=== PATIENT | female | born 1940 | race Caucasian/White ===

== ENCOUNTER 2020-11-09 19:21 | Observation (INO) | payer MEDICARE, OTHER ==
[~2020-11-09] VITALS: Ht 157.5 cm; Wt 90.7 kg
[~2020-11-09 19:21] MED LIST: ACET325 PO; AMLO5 PO; ASPI81CH PO; ATOR20 PO; CYAN500 PO; EUTHYROX50 MCG PO; FOLI1 PO; LISI20 PO; METF500C PO; METO100ER PO; POTCHL20ER PO; SENNA LAXATIVE8.6 MG PO; SERT50 PO
[2020-11-09 20:34] LABS: BASOPHILS ABSOLUTE AUTO 0.03 K/mm3 (0.00-0.23); BASOPHILS PERCENT AUTO 0 % (0-2); EOSINOPHILS ABSOLUTE AUTO 0.04 K/mm3 (0.00-0.68); EOSINOPHILS PERCENT AUTO 0 % (0-6); Hematocrit 34.7 % (33.0-51.0); Hemoglobin 11.2 g/dL (11.5-16.0); IMMATURE GRAN ABSOLUTE AUTO 0.05 K/mm3 (0.00-0.10); IMMATURE GRAN PERCENT AUTO 0 % (0-1); LYMPHOCYTES ABSOLUTE AUTO 0.87 K/mm3 (0.84-5.20); LYMPHOCYTES PERCENT AUTO 6 % (21-46); MONOCYTES ABSOLUTE AUTO 1.21 K/mm3 (0.16-1.47); MONOCYTES PERCENT AUTO 9 % (4-13); Mean Corpuscular HGB 28.4 pg (26.0-34.0); Mean Corpuscular HGB Conc 32.3 g/dL (31.5-36.5); Mean Corpuscular Volume 88 fL (80-100); Mean Platelet Volume 10.5 fL (9.1-12.4); NEUTROPHILS ABSOLUTE AUTO 12.01 K/mm3 (1.96-9.15); NEUTROPHILS PERCENT AUTO 85 % (41-73); Platelet Count 335 K/mm3 (150-400); RDW Coefficient Variation 12.7 % (11.7-14.2); RDW Standard Deviation 41.7 fL (35.1-46.3); Red Blood Cell Count 3.95 M/mm3 (3.80-5.20); White Blood Cell Count 14.21 K/mm3 (4.00-11.30)
[2020-11-09 20:57] LABS: Alanine Aminotransfer (ALT/SGP 28 U/L (12-78); Albumin, Blood 2.8 g/dL (3.4-5.0); Albumin/Globulin Ratio 0.6 (0.8-1.8); Alk Phos 111 U/L (50-136); Anion Gap 11 mmol/L (6-16); Aspartate Aminotrans (AST/SGOT 28 U/L (12-37); Bilirubin, Total 0.8 mg/dL (0.1-1.0); Blood Urea Nitrogen 29 mg/dL (8-24); Bun/Creatinine Ratio 34.4 (12.0-20.0); CO2, Blood 20 mmol/L (21-32); Chloride, Blood 99 mmol/L (98-108); Creatinine, Blood 0.84 mg/dL (0.40-1.00); Free Thyroxine 1.45 ng/dL (0.70-1.60); Globulin, Blood 4.4 g/dL (2.2-4.0); Glomerular Filtration Rate >60 (60-); Glucose, Blood 265 mg/dL (70-99); Magnesium, Blood 2.3 mg/dL (1.6-2.4); Potassium, Blood 4.1 mmol/L (3.5-5.5); Sodium, Blood 130 mmol/L (136-145); Total Protein, Blood 7.2 g/dL (6.4-8.2)
[2020-11-09 21:33] LABS: Source, Urine Clean Catch
[2020-11-09 21:45] LABS: Appearance, Urine Hazy (Clear); Bilirubin, Urine Neg (Neg); Blood, Urine Neg (Neg); Color, Urine Yellow (P-Yellow); Glucose Qualitative, Urine 4+ (Neg); Ketones, Urine Neg (Neg); Leukocyte Esterase, Urine 1+ (Neg); Nitrite, Urine Neg (Neg); Protein, Urine 2+ (Neg); Urobilinogen, Urine 1+ (Normal)
[2020-11-09 22:32] LABS: Bacteria Many /hpf; Red Blood Cells, Urine 0-2 /hpf (0-2); Squamous Epithelial Cells Few /hpf (Few)
--- NOTE | 2020-11-10 07:47 | NUR ---
11/10/20 0035 PT ARRIVED FROM ER VIA [facility]. ORIENTED HER TO ROOM AND ORDERS. COMPUTER SYSTEM ON DOWN-TIME AND ADMISSION PAPERWORK DONE ON PAPER FORMS. SEE CHART.
--- NOTE | 2020-11-10 07:49 | NUR ---
11/10/20 0600 PT SLEPT WELL AND IV FLUIDS RUNNING AT 75ML/HOUR. DENIES ANY PAIN. GENERAL WEAKNESS NOTED AND REPOSITIONED Q 2 HOURS WITH PILLOWS. TILLMAN CATH PATENT AND DRAINING WELL.
[2020-11-10] MEDS ORDERED: HYDCHL12.5 PO (16:54)
--- NOTE | 2020-11-10 19:16 | NUR ---
She remains pleasantly confused. SHE WAS UP IN THE CHAIR FOR 2 MEALS. SHE WORKED WITH PT TODAY. HER TILLMAN IS PATENT. SHE HAD A VERY SMALL BM FORMED BROWN TODAY. SHE HAD PAIN ALL OVER THIS MORNING AND TYLENOL WAS EFFECTIVE. ALL CBG'S WERE IN THE 200'S TODAY. SHE HAS EATEN WELL. IVFS WERE COMPLETED. LAST SBP HIGH LIKE IT WAS LAST NIGHT.
--- NOTE | 2020-11-11 04:22 | NUR ---
SHIFT SUMMARY- PT. ALERT W/CONFUSION. HAD NO COMPLAINTS T/O THE NIGHT. SLEPT MOST OF THE NIGHT, NO APPARENT DISTRESS NOTED. C/O LEG PAIN 1X, MEDICATED PER EMAR WITH GOOD EFFECT. TILLMAN CATHETER PATENT AND DRAINING. VSS. CALL LIGHT WITHIN REACH, SIDE RAILS UPX2, AND BED ALARM ON FOR SAFETY. WILL CONT TO MONITOR.
[2020-11-11 08:20] LABS: BASOPHILS ABSOLUTE AUTO 0.06 K/mm3 (0.00-0.23); BASOPHILS PERCENT AUTO 1 % (0-2); EOSINOPHILS ABSOLUTE AUTO 0.13 K/mm3 (0.00-0.68); EOSINOPHILS PERCENT AUTO 1 % (0-6); Hematocrit 34.3 % (33.0-51.0); Hemoglobin 11.2 g/dL (11.5-16.0); IMMATURE GRAN ABSOLUTE AUTO 0.06 K/mm3 (0.00-0.10); IMMATURE GRAN PERCENT AUTO 1 % (0-1); LYMPHOCYTES ABSOLUTE AUTO 1.11 K/mm3 (0.84-5.20); LYMPHOCYTES PERCENT AUTO 10 % (21-46); MONOCYTES ABSOLUTE AUTO 0.89 K/mm3 (0.16-1.47); MONOCYTES PERCENT AUTO 8 % (4-13); Mean Corpuscular HGB 28.1 pg (26.0-34.0); Mean Corpuscular HGB Conc 32.7 g/dL (31.5-36.5); Mean Corpuscular Volume 86 fL (80-100); Mean Platelet Volume 10.5 fL (9.1-12.4); NEUTROPHILS PERCENT AUTO 81 % (41-73); Platelet Count 387 K/mm3 (150-400); RDW Coefficient Variation 12.9 % (11.7-14.2); RDW Standard Deviation 40.5 fL (35.1-46.3); Red Blood Cell Count 3.98 M/mm3 (3.80-5.20); White Blood Cell Count 11.55 K/mm3 (4.00-11.30)
[2020-11-11 08:43] LABS: Anion Gap 7 mmol/L (6-16); Blood Urea Nitrogen 18 mg/dL (8-24); Bun/Creatinine Ratio 26.7 (12.0-20.0); CO2, Blood 25 mmol/L (21-32); Chloride, Blood 106 mmol/L (98-108); Creatinine, Blood 0.67 mg/dL (0.40-1.00); Glomerular Filtration Rate >60 (60-); Glucose, Blood 154 mg/dL (70-99); Potassium, Blood 3.4 mmol/L (3.5-5.5); Sodium, Blood 138 mmol/L (136-145)
--- NOTE | 2020-11-11 17:59 | NUR ---
SHE HAS HAD AN UNEVENTFUL DAY. SHE DID TALK TO A COUPLE OF FAMILY MEMBERS ON THE PHONE THOUGH. SHE IS PLEASANTLY CONFUSED. SHE DOES NOT UNDERSTAND HOW TO DIAL THE PHONE OR USE THE NURSE CALL LIGHT AND TV CONTROL. SHE IS VERY WEAK BUT CAN GET TO A STAND WITH 2 ASSIST. HE BALANCE IS ALSO POOR SO THE GAIT BELT IS NECESSARY. SHE RESPONDS WELL TO QUE[place]. TILLMAN PATENT. BP 170'S NEAR THE END OF THE SHIFT. TYLENOL GIVEN X1 FOR GENERAL DISCOMFORT ALL OVER.
--- NOTE | 2020-11-12 05:06 | NUR ---
SHIFT SUMMARY- NO ACUTE EVENTS OVERNIGHT. PT. AWAKE MOST OF THE SHIFT, PLEASANTLY CONFUSED. NO C/O PAIN OR DISCOMFORT. BP IMPROVED LAST NIGHT, NO ACUTE DISTRESS NOTED. CALL LIGHT WITHIN REACH AND SIDE RAILS UPX2. WILL CONT TO MONITOR.
--- NOTE | 2020-11-12 15:45 | NUR ---
CALLED hospitalist for parameters for dealing with high bp, left two messages but in one hour no response, checked with [facility] nurse she recommended giving hydrazaline as prescribed prn, did so will continue to monitor and treat as appropriate
--- NOTE | 2020-11-12 19:15 | NUR ---
a+o to self, states she is at the dr's, call light in reach, bed in low position, htn treated with prn medication successfully, sitting up in bed watching tv, bed in low position no acute changes noted during shift, bsr shared with noc nurse and pt
--- NOTE | 2020-11-13 06:39 | NUR ---
HOURLY SHIFT MANAGER SUMMARY PT A/O X1 TO SELF. SLEPT WELL TONIGHT. MEDICATED FOR HTN PER EMAR. PT IS PLEASANTLY CONFUSED. NO ACUTE CHANGES. PO FLUIDS ENCOURAGED OVERNIGHT. TILLMAN IN PLACE, PATENT AND DRAINING. CALL LIGHT WITHIN REACH, BED ALARM IN PLACE.
--- NOTE | 2020-11-13 20:17 | NUR ---
a+o to self, call light in reach, note given to litigation legal secretary r/change of phone number of next of kin, Son had called at 1630 and expressed concern r/mentation of pt and her suitability of returing home, fully supported snf, stated he had pw giving him poa, was not able to get note written for litigation legal secretary until after change of shift, confirmed pt desire to have son as poa, bsr shared with noc nurse and pt
--- NOTE | 2020-11-14 07:21 | NUR ---
CRIME DATA SPECIALIST SUMMARY PT A/O X0. PLEASANTLY SURPRISED. CONVERSATIONS DOES NOT MAKE SENSE. SLEPT WELL TONIGHT. BLE EDEMA, ELEVATED BLE TO DECREASE SWELLING AND PAIN. PT COMPLAINED OF A HEADACHE THIS MORNING. MEDICATED WITH TYLENOL. NO ACUTE CHANGES. BED ALARM IN PLACE, CALL LIGHT WITHIN REACH. REPORT GIVEN TO AM NURSE.
--- NOTE | 2020-11-14 17:23 | NUR ---
PT AOX1 AND COOPERATIVE OF CARE. PT HAS BEEN RESTING IN BED TODAY. PT IS A TWO PERSON TRANSFER TO BEDSIDE COMMODE SHE IS NOT VERY STRONG YET. PT HAS DENIED ANY PAIN. PT'S TILLMAN IS PATENT AT THIS TIME. BED ALARM IS IN PLACE AND CALL LIGHT WITHIN REACH. WILL CONTINUE TO MONITOR.
--- NOTE | 2020-11-15 06:06 | NUR ---
SUMMARY NO ISSUES NOTED. PT HAS BEEN RESTING WELL T/O SHIFT. PT SLEPT SOME. PT HAD NO COMPLAINTS. PT CURRENTLY SLEEPING AND BREATHING EASY. PT REMAINS CONFUSED AND PLESANT. CALL LIGHT IN REACH AND BED ALARM ON.
[2020-11-15 16:29] LABS: Influenza A, PCR Negative (NEGATIVE); Influenza B, PCR Negative (NEGATIVE); Resp Syncytial Virus, PCR Negative (NEGATIVE); SARS-Cov-2 (COVID-19) PCR, MMC Negative (NEGATIVE)
[2020-11-15] MEDS ORDERED: NORVASC5 MG PO (16:29)
[2020-11-15] MEDS ORDERED: INSULANPEN SC (16:30)
[2020-11-15] MEDS ORDERED: HUMALOG KW100 UNIT/1 SC (16:31)
--- NOTE | 2020-11-15 18:44 | NUR ---
PT TRANSFERED TO [facility]. NO DISTRESS NOTED AOX1-2 WITH CONFUSION. PT A 2 PERSON TRANSFER TO CHAIR OR COMMODE. PT DOING WELL TALKING AND VISITING TODAY. CALLED REPORT PRIOR TO TRANSPORT. PT TRANSPORTED VIA [facility] AND [facility]. PACKET SENT WITH CORRECTIONAL PROGRAM OFFICER.
== END 2020-11-15 18:25 ==
LOC: ER 19:21 → MEDS 19:22
PROVIDERS: Emergency Medicine; Family Medicine; Internal Medicine; ADMIT Internal Medicine
DX: N39.0 Urinary tract infection, site not specified (principal); E86.0 Dehydration; I11.0 Hypertensive heart disease with heart failure; I50.32 Chronic diastolic (congestive) heart failure; E11.65 Type 2 diabetes mellitus with hyperglycemia; E03.9 Hypothyroidism, unspecified; I47.1 Supraventricular tachycardia; E78.5 Hyperlipidemia, unspecified; Z79.84 Long term (current) use of oral hypoglycemic drugs; Z79.82 Long term (current) use of aspirin; Z79.899 Other long term (current) drug therapy; Z20.828 Contact with and (suspected) exposure to other viral communicable diseases
CPT/HCPCS: 0241U; 36415; 51702; 71046; 73502; 74176; 80048; 80053; 81001; 82947; 83735; 84439; 84443; 85025; 87086; 93005; 93010; 96361-59; 96365-59; 97110; 97110-CQ; 97129; 97162; 97166; 97530; 97530-CQ; 97535; 99285-25; A9270; A9270-GY; J0360; J0696; J7030; J7050

== ENCOUNTER 2020-11-18 13:31 | Inpatient (IN) | payer MEDICARE, OTHER ==
[~2020-11-18] VITALS: Ht 162.6 cm; Wt 58.2 kg
[~2020-11-18 13:31] MED LIST changes: -ACET325 PO; -ASPI81CH PO; -ATOR20 PO; -EUTHYROX50 MCG PO; -LISI20 PO; -METF500C PO; -METO100ER PO; -POTCHL20ER PO; -SENNA LAXATIVE8.6 MG PO; -SERT50 PO
[2020-11-18 14:29] LABS: BASOPHILS ABSOLUTE AUTO 0.09 K/mm3 (0.00-0.23); BASOPHILS PERCENT AUTO 1 % (0-2); EOSINOPHILS ABSOLUTE AUTO 0.04 K/mm3 (0.00-0.68); EOSINOPHILS PERCENT AUTO 0 % (0-6); IMMATURE GRAN ABSOLUTE AUTO 0.38 K/mm3 (0.00-0.10); IMMATURE GRAN PERCENT AUTO 2 % (0-1); LYMPHOCYTES ABSOLUTE AUTO 1.66 K/mm3 (0.84-5.20); LYMPHOCYTES PERCENT AUTO 10 % (21-46); MONOCYTES ABSOLUTE AUTO 0.75 K/mm3 (0.16-1.47); MONOCYTES PERCENT AUTO 4 % (4-13); Mean Corpuscular HGB 28.1 pg (26.0-34.0); Mean Corpuscular HGB Conc 31.3 g/dL (31.5-36.5); Mean Corpuscular Volume 90 fL (80-100); Mean Platelet Volume 10.4 fL (9.1-12.4); NEUTROPHILS ABSOLUTE AUTO 14.22 K/mm3 (1.96-9.15); NEUTROPHILS PERCENT AUTO 83 % (41-73); Platelet Count 548 K/mm3 (150-400); RDW Coefficient Variation 13.1 % (11.7-14.2); RDW Standard Deviation 42.9 fL (35.1-46.3); Red Blood Cell Count 1.99 M/mm3 (3.80-5.20); White Blood Cell Count 17.14 K/mm3 (4.00-11.30)
[2020-11-18 14:34] LABS: Hematocrit 17.9 % (33.0-51.0); Hemoglobin 5.6 g/dL (11.5-16.0)
[2020-11-18 14:50] LABS: Albumin, Blood 2.5 g/dL (3.4-5.0); Albumin/Globulin Ratio 0.7 (0.8-1.8); Bilirubin, Total 0.2 mg/dL (0.1-1.0); Creatinine, Blood 1.03 mg/dL (0.40-1.00); Globulin, Blood 3.4 g/dL (2.2-4.0); Potassium, Blood 4.7 mmol/L (3.5-5.5); Total Protein, Blood 5.9 g/dL (6.4-8.2)
[2020-11-18 16:08] LABS: International Normalized Ratio 1.03
[2020-11-18] MEDS ORDERED: ASPI81CH PO (16:33)
[2020-11-18] MEDS ORDERED: HYDCHL12.5 PO (16:34)
[2020-11-18] MEDS ORDERED: ATOR10 PO (16:34)
[2020-11-18] MEDS ORDERED: POTCHL20ER PO (16:34)
[2020-11-18] MEDS ORDERED: METO50ER PO (16:35)
[2020-11-18] MEDS ORDERED: ZESTRIL40 M1 PO (16:35)
[2020-11-18] MEDS ORDERED: SENNA LAXATIVE8.6 MG PO (16:36)
[2020-11-18] MEDS ORDERED: NORVASC5 MG PO (16:36)
[2020-11-18] MEDS ORDERED: SERT25 PO (16:37)
[2020-11-18] MEDS ORDERED: EUTHYROX50 MCG PO (16:37)
[2020-11-18] MEDS ORDERED: GLUCOPHAGE1000 M1 PO (16:38)
[2020-11-18] MEDS ORDERED: DULCOLAX400 MG/5 M PO (16:38)
[2020-11-18] MEDS ORDERED: ACET325 PO (16:38)
[2020-11-18] MEDS ORDERED: INSULANPEN SC (16:43)
[2020-11-18] MEDS ORDERED: HUMALOG KW100 UNIT/1 SC (16:43)
--- NOTE | 2020-11-18 18:16 | NUR ---
2ND UNIT OF PR[facility] IS INFUSING NOW. DR ROTH IS AT BEDSIDE FOR ASSESSMENT HE WILL BE CALLING [facility] AND SON FOR CONSENT FOR SURIGCAL PROCEDURE
[2020-11-18 18:52] LABS: SARS-Cov-2 (COVID-19) PCR, MMC Negative (NEGATIVE)
[2020-11-18 18:53] LABS: Influenza A, PCR Negative (NEGATIVE); Influenza B, PCR Negative (NEGATIVE); Resp Syncytial Virus, PCR Negative (NEGATIVE)
[2020-11-18 22:53] LABS: Hematocrit 24.3 % (33.0-51.0); Hemoglobin 8.1 g/dL (11.5-16.0)
[2020-11-19 03:58] LABS: BASOPHILS ABSOLUTE AUTO 0.12 K/mm3 (0.00-0.23); BASOPHILS PERCENT AUTO 1 % (0-2); EOSINOPHILS ABSOLUTE AUTO 0.24 K/mm3 (0.00-0.68); EOSINOPHILS PERCENT AUTO 2 % (0-6); Hematocrit 23.8 % (33.0-51.0); IMMATURE GRAN PERCENT AUTO 2 % (0-1); LYMPHOCYTES ABSOLUTE AUTO 2.77 K/mm3 (0.84-5.20); LYMPHOCYTES PERCENT AUTO 18 % (21-46); MONOCYTES ABSOLUTE AUTO 1.02 K/mm3 (0.16-1.47); MONOCYTES PERCENT AUTO 7 % (4-13); Mean Corpuscular HGB 29.4 pg (26.0-34.0); Mean Corpuscular HGB Conc 33.6 g/dL (31.5-36.5); Mean Corpuscular Volume 88 fL (80-100); Mean Platelet Volume 9.6 fL (9.1-12.4); NEUTROPHILS ABSOLUTE AUTO 10.89 K/mm3 (1.96-9.15); NEUTROPHILS PERCENT AUTO 71 % (41-73); Platelet Count 438 K/mm3 (150-400); RDW Coefficient Variation 13.7 % (11.7-14.2); Red Blood Cell Count 2.72 M/mm3 (3.80-5.20); White Blood Cell Count 15.34 K/mm3 (4.00-11.30)
[2020-11-19 04:22] LABS: Albumin, Blood 2.3 g/dL (3.4-5.0); Albumin/Globulin Ratio 0.7 (0.8-1.8); Bilirubin, Total 1.9 mg/dL (0.1-1.0); Bun/Creatinine Ratio 58.3 (12.0-20.0); Calcium, Blood 8.5 mg/dL (8.5-10.1); Creatinine, Blood 1.15 mg/dL (0.40-1.00); Globulin, Blood 3.2 g/dL (2.2-4.0); Potassium, Blood 4.4 mmol/L (3.5-5.5); Total Protein, Blood 5.5 g/dL (6.4-8.2)
--- NOTE | 2020-11-19 06:28 | NUR ---
SHIFT SUMMARY PT ALERT AND ORIENTED TO SELF AND LOCATION. BED ALARM IN PLACE FOR SAFETY. PT TURNED Q 2 HRS AND NEEDED FOR COMFORT. NO REDNESS ON COCCYX. BRIEF ON FOR INCONTINENCE. PT CONTINENT AT TIMES AND USES BEDPAN. HR STABLE. BP STABLE. OXYGEN SATURATION MAINTAINED ABOVE 95% ON RA. PT REPORTS NO CP OR PRESSURE. PT REPORTS SORE BACK, HEATING PAD PROVIDED. PT REPORTS RELIEF WITH THIS MEASURE. WILL CONTINUE TO MONITOR UNTIL REPORT GIVEN TO JACKIE RN.
--- NOTE | 2020-11-19 08:41 | NUR ---
PT TRANSFERED TO [facility] FROM PCU VIA [facility]. History, Chart, Medications and Allergies reviewed before start of procedure. Lungs clear T/O to Auscultation. Patient confirms NPO status and agrees with scheduled surgery. Pre-Op teaching done. Pt verbalizes understanding.
--- NOTE | 2020-11-19 08:58 | NUR ---
11/19/20 0858 BUSHRA PEDROZA History, Chart, Medications and Allergies reviewed before start of procedure. O2 VIA N/C INTACT THROUGHOUT SEDATION/PROCEDURE. 3-LEAD EKG REVIEWED WITH PHYSICIAN PRIOR TO START OF PROCEDURE. MONITOR INTACT WITH CONTINUOUS PULSE OXIMETRY AND INTERMITTENT BP. PATIENT DETERMINED TO BE ASA APPROPRIATE FOR PROPOFOL SEDATION PRIOR TO START OF PROCEDURE BY DR. ROTH.
--- NOTE | 2020-11-19 18:52 | NUR ---
SHIFT NOTE PT WENT TO OR FOR EGD THIS AM, RETURNED WITH TARANGO DEVICE AND BALOONING PROCEDURE FOR ESPHAGEAL STRICTURES. PT AWAKENS EASILY TO VERBAL STIMULI T/O THE DAY. CONFUSED, ORIENTED TO SELF AND SURROUNDINGS. PT'S SON FREDIS WAS UPDATED BY DR ROTH POST PROCEDURE. VSS. PT DID BECOME FEBRILE THIS AFTERNOON WHICH RESOLVED WITH TYLENOL ADMINISTRATION. PT DENIES ANY PAIN
--- NOTE | 2020-11-20 04:00 | NUR ---
REFUSING SCD'S PT REFUSING SCD'S T/O SHIFT.
--- NOTE | 2020-11-20 06:17 | NUR ---
SHIFT SUMMARY PT SLEPT T/O SHIFT. PT TURNED Q 2 HRS. HR STABLE. BP STABLE. OXYGEN SATURATION ABOVE 92% ON 3 L OF OXYGEN VIA NC. PT REPORTS NO CP OR PRESSURE. PT CONTINENT T/O SHIFT. WILL CONTINUE TO MONITOR UNTIL REPORT GIVEN TO JACKIE HENLEY.
[2020-11-20 08:49] LABS: BASOPHILS ABSOLUTE AUTO 0.08 K/mm3 (0.00-0.23); BASOPHILS PERCENT AUTO 0 % (0-2); EOSINOPHILS ABSOLUTE AUTO 0.05 K/mm3 (0.00-0.68); EOSINOPHILS PERCENT AUTO 0 % (0-6); Hematocrit 24.5 % (33.0-51.0); IMMATURE GRAN ABSOLUTE AUTO 0.29 K/mm3 (0.00-0.10); IMMATURE GRAN PERCENT AUTO 1 % (0-1); LYMPHOCYTES ABSOLUTE AUTO 1.63 K/mm3 (0.84-5.20); LYMPHOCYTES PERCENT AUTO 5 % (21-46); MONOCYTES ABSOLUTE AUTO 1.06 K/mm3 (0.16-1.47); MONOCYTES PERCENT AUTO 3 % (4-13); Mean Corpuscular HGB 29.3 pg (26.0-34.0); Mean Corpuscular HGB Conc 32.7 g/dL (31.5-36.5); Mean Corpuscular Volume 90 fL (80-100); Mean Platelet Volume 9.6 fL (9.1-12.4); NEUTROPHILS ABSOLUTE AUTO 28.04 K/mm3 (1.96-9.15); NEUTROPHILS PERCENT AUTO 90 % (41-73); Platelet Count 490 K/mm3 (150-400); RDW Coefficient Variation 14.1 % (11.7-14.2); RDW Standard Deviation 45.4 fL (35.1-46.3); Red Blood Cell Count 2.73 M/mm3 (3.80-5.20); White Blood Cell Count 31.15 K/mm3 (4.00-11.30)
[2020-11-20 09:21] LABS: Bun/Creatinine Ratio 41.2 (12.0-20.0); Calcium, Blood 8.5 mg/dL (8.5-10.1); Creatinine, Blood 0.99 mg/dL (0.40-1.00)
[2020-11-20 14:57] LABS: Source, Urine Clean Catch
[2020-11-20 15:10] LABS: Appearance, Urine Clear (Clear); Bilirubin, Urine Neg (Neg); Blood, Urine Neg (Neg); Color, Urine Yellow (P-Yellow); Glucose Qualitative, Urine Neg (Neg); Ketones, Urine Neg (Neg); Leukocyte Esterase, Urine Neg (Neg); Nitrite, Urine Neg (Neg); Protein, Urine Neg (Neg); Specific Gravity, Urine 1.015 (1.003-1.022); Urobilinogen, Urine NORM (Normal)
--- NOTE | 2020-11-20 18:20 | NUR ---
NO CUTE EVENTS THIS SHIFT, VSS. PATIENT TOLERATED AMBULATING TO BEDSIDE COMMODE/CHAIR WITH X1 ASSIST. PATIENT DENIED PAIN THIS SHIFT, COMPLAINED OF REFLUX BEFORE DINNER, PRILOSEC GIVEN PER EMAR. PATIENT IS ORIENTED TO SELF AND SITUATION, PLEASANT AND COOPERATIVE. PATIENT O2 TITRATED FROM 2L NC DOWN TO ROOM AIR THIS SHIFT, TOLERATING WELL.
[2020-11-21 04:56] LABS: BASOPHILS ABSOLUTE AUTO 0.05 K/mm3 (0.00-0.23); BASOPHILS PERCENT AUTO 0 % (0-2); EOSINOPHILS ABSOLUTE AUTO 0.16 K/mm3 (0.00-0.68); EOSINOPHILS PERCENT AUTO 1 % (0-6); Hematocrit 23.6 % (33.0-51.0); Hemoglobin 7.7 g/dL (11.5-16.0); IMMATURE GRAN ABSOLUTE AUTO 0.14 K/mm3 (0.00-0.10); IMMATURE GRAN PERCENT AUTO 1 % (0-1); LYMPHOCYTES PERCENT AUTO 7 % (21-46); MONOCYTES ABSOLUTE AUTO 1.03 K/mm3 (0.16-1.47); MONOCYTES PERCENT AUTO 5 % (4-13); Mean Corpuscular HGB 29.1 pg (26.0-34.0); Mean Corpuscular HGB Conc 32.6 g/dL (31.5-36.5); Mean Corpuscular Volume 89 fL (80-100); Mean Platelet Volume 9.9 fL (9.1-12.4); NEUTROPHILS ABSOLUTE AUTO 17.08 K/mm3 (1.96-9.15); NEUTROPHILS PERCENT AUTO 86 % (41-73); Platelet Count 502 K/mm3 (150-400); RDW Coefficient Variation 13.8 % (11.7-14.2); Red Blood Cell Count 2.65 M/mm3 (3.80-5.20); White Blood Cell Count 19.76 K/mm3 (4.00-11.30)
[2020-11-21 05:12] LABS: Anion Gap 5 mmol/L (6-16); Blood Urea Nitrogen 25 mg/dL (8-24); CO2, Blood 27 mmol/L (21-32); Calcium, Blood 8.5 mg/dL (8.5-10.1); Chloride, Blood 105 mmol/L (98-108); Creatinine, Blood 0.93 mg/dL (0.40-1.00); Glomerular Filtration Rate >60 (60-); Glucose, Blood 163 mg/dL (70-99); Sodium, Blood 137 mmol/L (136-145)
--- NOTE | 2020-11-21 07:49 | NUR ---
SHIFT SUMMARY PATIENT IS ALERT AND ORIENTED TO SELF, PATIENT SAID SHE COULD NOT STATE THE YEAR AND FORGETS WHERE SHE IS AT TIMES. PATIENT CALLS APPROPRIATELY AND IS A ONE PERSON ASSIST TO BEDSIDE COMMODE. PATIENT SLEPT MOST THE NIGHT. NO COMPLAINTS OF CP OR SOB. 02 SATS >90% ON RA. VSS, NO ACUTE CHANGES. BED IN LOWEST POSITION, BED ALARM ON, CALL LIGHT IN REACH.
--- NOTE | 2020-11-21 18:03 | NUR ---
SHIFT SUMMARY: NO ACUTE CHANGES T/OUT SHIFT. PT ALERT AND ORIENTED TO SELF, SURROUNDINGS. PT ANSWERING QUESTIONS BUT STRUGGLES TO FIND APPROPRIATE WORDING WHICH IS NORMAL FOR HER ACCORDING TO HER SON, FREDIS. PT CONTINUES ON ROOM AIR, TAKES MEDICATIONS APPROPRIATELY, TRANSITIONED TO BEDSIDE CHAIR FOR DINNER W/OUT INCIDENT. WILL CONTINUE TO MONITOR AND TREAT ACCORDINGLY UNTIL CHANGE OF SHIFT.
--- NOTE | 2020-11-22 00:21 | NUR ---
PATIENT IS ALERT AND ORIENTED TO SELF ONLY. PATIENT IS COOPERATIVE WITH CARE. CONTINENT AT TIMES TO BEDSIDE COMMODE, BRIEF IN PLACE FOR MOMENTS OF INCONTINENCE. ASSIST PATIENT WITH TURNING Q2 HOURS. 02 SATS >93% ON RA. CALL LIGHT IS IN REACH, BED IN LOWEST POSITION AND BED ALARM ON.
[2020-11-22 04:20] LABS: BASOPHILS ABSOLUTE AUTO 0.06 K/mm3 (0.00-0.23); BASOPHILS PERCENT AUTO 0 % (0-2); EOSINOPHILS ABSOLUTE AUTO 0.18 K/mm3 (0.00-0.68); EOSINOPHILS PERCENT AUTO 1 % (0-6); Hematocrit 25.9 % (33.0-51.0); Hemoglobin 8.4 g/dL (11.5-16.0); IMMATURE GRAN ABSOLUTE AUTO 0.18 K/mm3 (0.00-0.10); IMMATURE GRAN PERCENT AUTO 1 % (0-1); LYMPHOCYTES PERCENT AUTO 6 % (21-46); MONOCYTES ABSOLUTE AUTO 0.83 K/mm3 (0.16-1.47); MONOCYTES PERCENT AUTO 5 % (4-13); Mean Corpuscular HGB 29.2 pg (26.0-34.0); Mean Corpuscular HGB Conc 32.4 g/dL (31.5-36.5); Mean Corpuscular Volume 90 fL (80-100); Mean Platelet Volume 9.8 fL (9.1-12.4); NEUTROPHILS ABSOLUTE AUTO 13.97 K/mm3 (1.96-9.15); NEUTROPHILS PERCENT AUTO 86 % (41-73); Platelet Count 569 K/mm3 (150-400); RDW Coefficient Variation 13.6 % (11.7-14.2); RDW Standard Deviation 44.1 fL (35.1-46.3); Red Blood Cell Count 2.88 M/mm3 (3.80-5.20); White Blood Cell Count 16.22 K/mm3 (4.00-11.30)
--- NOTE | 2020-11-22 06:29 | NUR ---
SHIFT SUMMARY NO ACUTE CHANGES. PATIENT SLEPT MOST THE NIGHT. MEDICATED AND REPOSITIONED PATIENT FOR LEG PAIN. 02 SATS >90% ON RA. UP TO BEDSIDE COMMODE AT TIMES. PATIENT CALLS APPROPRIATELY CALL LIGHT IN REACH, BED IN LOWEST POSITION, BED ALARM ON.
--- NOTE | 2020-11-22 11:39 | NUR ---
Advance Directive (AD) education conducted. Patient is lying in bed and alert. Patient has trouble articulating what medical issues she has but once in the discussion about the AD patient clear states that she does not want chest compressions or being keep alive by a breathing machine or artificial nutrition/hydration. Patient states that she would like the AD form but would like to do it when she is feeling better. After talking about the importance of the AD and the filing process I asked patient if the imformation made sense she stated "Yes." But when I asked her what she heard she was unable to articulate anything of substance back to me. I am not sure of her comprehension of the AD. I will continue to try to bring support and assist in her medical decision making process.
--- NOTE | 2020-11-22 17:27 | NUR ---
SHIFT SUMMARY: PT CONTINUES ALERT AND CONFUSED TODAY. PT ATTEMPTS TO ANSWER QUESTIONS, OR CARRY CONVERSATION, BUT TRAILS OFF WHEN ATTEMPTING TO FIND THE RIGHT WORDING. PER HER SON, FREDIS, THIS IS NORMAL FOR HER AND THESE SYMPTOMS HAVE BEEN PROGRESSING OVER THE PAST YEAR. PT CONTINUES ON ROOM AIR, DEVELOPED LOW GRADE FEVER AND C/O LOWER BODY ACHES, MEDICATED WITH TYLENOL AND DR ORDOÑEZ NOTIFIED. PT TO AND FROM BEDSIDE CHAIR TWICE, SHOWS WEAKNESS BUT IS COOPERATIVE WITH CARE. NO BM TODAY. PT'S SON UPDATED VIA TELEPHONE AND STATES CONCERN ABOUT PT'S FEVER AND ACHES BEING A SIGN OF A FLARE UP OF PT'S "VALLEY FEVER" SHE WAS DX'D WITH [address] ORDOÑEZ NOTIFIED, CONSULTATION ORDER PLACED WITH DR MATHEWS, DR MATHEWS TO AND FROM BEDSIDE FOR EVAL. PT TRANSFERED TO MEDICAL DEPT, REPORT GIVEN TO KALE GONZALEZ.
--- NOTE | 2020-11-22 18:57 | NUR ---
1730 RECEIVED PT TO RM 333 VIA BED FROM PCU 11. SLIDE TX TO BED. PT SLEPT FOR THE FIRST HR TO RM, BUT IS AWAKE AND PLEASANT AT THIS TIME. PT SITTING UP EATING DINNER. ADMITTED FOR GIB, RECEIVED 2U PRBC'S. PER REPORT, PT WITH DEMENTIA, INCREASING THIS PAST YEAR. PT FROM [facility] D/T HAVING BLOODY STOOLS. SCOPE DONE, FINDING GIB R/T ULCERS. PT IS DIABETIC WITH HX OF SMKING AND VALLEY FEVER. DR MATHEWS CONSULTED AND SEEN PT TODAY. PER REPORT, ORDERS PLACED TO R/O, WITH RESULTS TO POSSIBLY TAKE A WEEK. PER REPORT, NO BM SINCE 11/19/20. PT TO HAVE BOWEL PROTOCOL BEFORE GOING BACK TO REHAB. PT DENIES NEEDS AT THIS TIME. CALL LT IN REACH. BED ALARM ON FOR SAFETY.
--- NOTE | 2020-11-22 22:05 | NUR ---
URINE SPECIMEN OBTAINED/SENT PER 'S NEW ORDERS, RESULTS PENDING.
[2020-11-23 05:28] LABS: BASOPHILS ABSOLUTE AUTO 0.06 K/mm3 (0.00-0.23); BASOPHILS PERCENT AUTO 0 % (0-2); EOSINOPHILS ABSOLUTE AUTO 0.11 K/mm3 (0.00-0.68); EOSINOPHILS PERCENT AUTO 1 % (0-6); Hematocrit 27.5 % (33.0-51.0); Hemoglobin 8.8 g/dL (11.5-16.0); IMMATURE GRAN ABSOLUTE AUTO 0.14 K/mm3 (0.00-0.10); IMMATURE GRAN PERCENT AUTO 1 % (0-1); LYMPHOCYTES PERCENT AUTO 7 % (21-46); MONOCYTES ABSOLUTE AUTO 0.94 K/mm3 (0.16-1.47); MONOCYTES PERCENT AUTO 7 % (4-13); Mean Corpuscular HGB 29.1 pg (26.0-34.0); Mean Corpuscular Volume 91 fL (80-100); Mean Platelet Volume 9.5 fL (9.1-12.4); NEUTROPHILS ABSOLUTE AUTO 12.17 K/mm3 (1.96-9.15); NEUTROPHILS PERCENT AUTO 84 % (41-73); Platelet Count 557 K/mm3 (150-400); RDW Coefficient Variation 13.8 % (11.7-14.2); Red Blood Cell Count 3.02 M/mm3 (3.80-5.20); White Blood Cell Count 14.42 K/mm3 (4.00-11.30)
--- NOTE | 2020-11-23 08:20 | NUR ---
SUMMARY: PT A/O X2-3 W/SOME MILD CONFUSION R/T DEMENTIA AND DIFFICULTY FINDING WORDS AT TIMES. BED ALARM ON FOR FALL RISK AND POSSIBLE FORGETFULLNESS. SHE WAS REPORTED TO BE A 1-2PA OOB BUT WAS WEAK THIS SHIFT REQUIRING 2MAX PIVOT T/F TO [facility]. URINE SPECIMEN OBTAINED AND SENT PER CX ORDERS FOLLOWING SON'S REPORT THAT PT HAD "VALLEY FEVER". SHE WAS CONTINENT/INCONT. THIS SHIFT W/ATTENDS CHANGED PRN AND BEDPAN UTILIZED APPROPRIATE. STRENGTH SEEMS DEPENDENT ON LEG PAIN. SHE WAS MEDICATED W/TYLENOL X2 FOR C/O BILAT LEG PAIN THAT SEEMED TO MIGRATE. ASP PREC'S MAINTAINED, PILLS TOLERATED WHOLE W/WATER. NO EVIDENCE CONTINUED BLEEDING FOLLOWING SCOPE AND H/H STABLE BUT PT HASN'T HAD BM THIS SHIFT. PLAN IS FOR D/C TO SNF. NO ACUTE CHANGES, VSS AND AFEBRILE. WCTM AND REPORT TO DAY RN.
[2020-11-23 13:21] LABS: Influenza A, PCR Negative (NEGATIVE); Influenza B, PCR Negative (NEGATIVE); Resp Syncytial Virus, PCR Negative (NEGATIVE); SARS-Cov-2 (COVID-19) PCR, MMC Negative (NEGATIVE)
--- NOTE | 2020-11-23 20:12 | NUR ---
SHIFT SUMMARY PT AxOx3 WITH INTERMITTENT CONFUSION. PLEASANT AND COOPERATIVE WITH CARE. HAS DIFFICULTY WITH SPEECH OCCASIONALLY. LOSES WORDS OR BLENDS WORDS TOGETHER AND GET FRUSTRATED AND EMBARASSED. 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 PT C/O PAIN IN BLE, WORSEN THIS EVENING. MEDICATED WITH TYLENOL AND GIVEN HEAT PACKS FOR RELIEF. WORKED WITH PT TODAY. 1 PERSON ASSIST FOR TRANSFERS WITH FWW AND GB FOR WEAKNESS/LEG PAIN. PT WAS MEDICALLY CLEARED BY DR ROTH AND DR ORDOÑEZ TODAY AND WAS EXPECTED TO GO TO [facility], HOWEVER [facility] WAS REQUIRING HER TO HAVE A BM SHE HAD NOT HAD A BMx4 DAYS. PT REPORTS MILD ABD DISTENTION AND TENDERNESS WITH PALPATION. BOWEL CARE INITIATED. PT CURRENTLY RESTING IN BED WITH CALL LIGHT IN REACH. VITALS REVIEWED. DENIES ANY NEEDS AT THIS TIME.
--- NOTE | 2020-11-24 05:20 | NUR ---
SUMMARY PT C/O BLE DISCOMFORT AND TX W/ TYLENOL. PT DID HAVE A NOTED BM THIS SHIFT. PT HAS REMAINED AFEBRILE. PT SLEPT WELL T/O SHIFT. PT CURRENTLY SLEEPING AND BREATHING EASY. CALL LIGHT IN REACH AND BED ALARM ON.
[2020-11-24 05:27] LABS: BASOPHILS ABSOLUTE AUTO 0.06 K/mm3 (0.00-0.23); BASOPHILS PERCENT AUTO 1 % (0-2); EOSINOPHILS ABSOLUTE AUTO 0.25 K/mm3 (0.00-0.68); EOSINOPHILS PERCENT AUTO 2 % (0-6); Hematocrit 26.6 % (33.0-51.0); Hemoglobin 8.4 g/dL (11.5-16.0); IMMATURE GRAN ABSOLUTE AUTO 0.11 K/mm3 (0.00-0.10); IMMATURE GRAN PERCENT AUTO 1 % (0-1); LYMPHOCYTES ABSOLUTE AUTO 1.08 K/mm3 (0.84-5.20); LYMPHOCYTES PERCENT AUTO 10 % (21-46); MONOCYTES ABSOLUTE AUTO 0.99 K/mm3 (0.16-1.47); MONOCYTES PERCENT AUTO 9 % (4-13); Mean Corpuscular HGB 28.7 pg (26.0-34.0); Mean Corpuscular HGB Conc 31.6 g/dL (31.5-36.5); Mean Corpuscular Volume 91 fL (80-100); Mean Platelet Volume 9.7 fL (9.1-12.4); NEUTROPHILS ABSOLUTE AUTO 8.28 K/mm3 (1.96-9.15); NEUTROPHILS PERCENT AUTO 77 % (41-73); Platelet Count 585 K/mm3 (150-400); RDW Coefficient Variation 13.7 % (11.7-14.2); RDW Standard Deviation 45.1 fL (35.1-46.3); Red Blood Cell Count 2.93 M/mm3 (3.80-5.20); White Blood Cell Count 10.77 K/mm3 (4.00-11.30)
[2020-11-24 05:46] LABS: Anion Gap 6 mmol/L (6-16); Blood Urea Nitrogen 17 mg/dL (8-24); CO2, Blood 28 mmol/L (21-32); Calcium, Blood 8.7 mg/dL (8.5-10.1); Chloride, Blood 106 mmol/L (98-108); Creatinine, Blood 0.74 mg/dL (0.40-1.00); Glomerular Filtration Rate >60 (60-); Glucose, Blood 157 mg/dL (70-99); Potassium, Blood 4.3 mmol/L (3.5-5.5); Sodium, Blood 140 mmol/L (136-145)
--- NOTE | 2020-11-24 12:22 | NUR ---
CALLED REPORT TO GREG AT [facility]. PT HAD ANOTHER BM THIS MORNING, WAS A01 TO [facility] WITH WALKER AND GAIT BELT. PIV REMOVED. TRANSPORT SCHEDULED FOR 215PM
[2020-11-24] MEDS ORDERED: HUMALOG JU100 UNIT/2 SC (14:19)
[2020-11-24] MEDS ORDERED: MIRALAX17 GM PO (14:22)
[2020-11-24] MEDS ORDERED: OMEP20ER PO (14:22)
[2020-11-24] MEDS ORDERED: AMOCLA875 PO (14:22)
[2020-11-24] MEDS ORDERED: VISBIOME PROBI1 EACH PO (14:23)
== END 2020-11-24 14:40 | DRG 381 ==
LOC: ER 13:31 → PCU 16:40 → MEDS 11-22 17:11
PROVIDERS: Emergency Medicine; Internal Medicine Gastroenterology; ADMIT Internal Medicine
PROC: 30233N1 Transfusion of Nonautologous Red Blood Cells into Peripheral Vein, Percutaneous Approach (ICD-10-PCS; 2020-11-18)
PROC: 0D758ZZ Dilation of Esophagus, Via Natural or Artificial Opening Endoscopic (ICD-10-PCS; principal; 2020-11-19 09:00)
PROC: 0DB68ZX Excision of Stomach, Via Natural or Artificial Opening Endoscopic, Diagnostic (ICD-10-PCS; 2020-11-19 09:00)
DX: K22.10 Ulcer of esophagus without bleeding (principal); N17.9 Acute kidney failure, unspecified; I50.32 Chronic diastolic (congestive) heart failure; I13.0 Hypertensive heart and chronic kidney disease with heart failure and stage 1 through stage 4 chronic kidney disease, or unspecified chronic kidney disease; D62 Acute posthemorrhagic anemia; K22.2 Esophageal obstruction; K44.9 Diaphragmatic hernia without obstruction or gangrene; K21.9 Gastro-esophageal reflux disease without esophagitis; F03.90 Unspecified dementia, unspecified severity, without behavioral disturbance, psychotic disturbance, mood disturbance, and anxiety; Z20.822 Contact with and (suspected) exposure to COVID-19; Z51.5 Encounter for palliative care; K59.00 Constipation, unspecified; E03.9 Hypothyroidism, unspecified; N18.9 Chronic kidney disease, unspecified; D63.1 Anemia in chronic kidney disease; E11.22 Type 2 diabetes mellitus with diabetic chronic kidney disease; E78.5 Hyperlipidemia, unspecified; Z79.4 Long term (current) use of insulin; Z79.82 Long term (current) use of aspirin
CPT/HCPCS: 0241U; 36415; 36416; 36430; 71046; 74022; 80048; 80053; 81003; 82272; 82947; 84145; 85014; 85018; 85025; 85610; 86635; 86850; 86900; 86901; 86920; 87040; 87449; 88305; 88342; 92610; 93005; 93010; 96374; 97110; 97162; 97165; 97530; 97535; 99285-25; A9270; A9270-GY; C1726; C9113; J0696; J2704; J7030; J7120; P9016